=== PATIENT | female | born 1940 | race Two or more races ===

== ENCOUNTER → 2024-04-26 | Outpatient (CLI) | payer MEDICARE, MEDICAID, SELFPAY ==
[2024-04-26 10:20] LABS: Basophils # (Auto) 0.1 Thou/mm3 (0.0-0.2); Basophils % (Auto) 1 % (0-2.5); Eosinophils # (Auto) 0.1 Thou/mm3 (0.0-0.5); Eosinophils % (Auto) 2 % (0-10); Hematocrit 35.6 % (36.0-46.0); Hemoglobin 11.8 g/dL (12.0-16.0); Immature Granulocytes % (Auto) 0 % (0-0); Immature Granulocytes Auto 0.02 Thou/mm3 (0.00-0.00); Lymphocytes # (Auto) 2.2 Thou/mm3 (1.0-4.8); Lymphocytes % (Auto) 29 % (10-50); Mean Corpuscular HGB Conc 33.1 g/dl (31.0-37.0); Mean Corpuscular Hemoglobin 30.8 pg (25.0-35.0); Mean Corpuscular Volume 93 fL (80-100); Monocytes # (Auto) 0.7 Thou/mm3 (0.0-0.8); Monocytes % (Auto) 9 % (0-12); Neutrophils # (Auto) 4.6 Thou/mm3 (1.8-7.7); Neutrophils % (Auto) 59 % (37-80); Nucleated Red Blood Cell % 0 /100 WBC (0); Platelet Count 199 Thou/mm3 (140-440); RDW Standard Deviation 45.1 fL (36.4-46.3); Red Blood Count 3.83 Miln/mm3 (4.00-5.20); White Blood Count 7.7 Thou/mm3 (3.6-11.0)
[2024-04-26 10:36] LABS: Glucose Estimated Average 183 mg/dL (80-131)
[2024-04-26 10:37] LABS: Collection Type, Urine Clean Catch
[2024-04-26 10:53] LABS: Vitamin B12 571 pg/mL (211-911)
[2024-04-26 10:54] LABS: Alanine Aminotransferase 20 U/L (10-49); Albumin, Serum 4.4 gm/dL (3.4-4.8); Albumin/Globulin Ratio 2.1 (1.2-2.2); Alkaline Phosphatase 44 U/L (46-116); Anion Gap 5 (7-16); Aspartate Amino Transferase 24 U/L (0-34); BUN/Creatinine Ratio 15 Ratio (12-20); Bilirubin,Total 0.4 mg/dL (0.3-1.2); Blood Urea Nitrogen 9 mg/dL (9-23); Calcium 9.4 mg/dL (8.3-10.6); Calcium (Corrected) 9.4 mg/dL (8.5-10.1); Carbon Dioxide 35.3 mMol/L (20.0-31.0); Cardiac Risk Estimate 2.6 RATIO (3.7-5.6); Chloride 100 mMol/L (98-107); Cholesterol 143 mg/dL (132-200); Creatinine (Component) 0.6 mg/dL (0.6-1.3); Globulin 2.1 gm/dL (2.3-3.5); Glucose 107 mg/dL (74-106); HDL Cholesterol 55 mg/dL (40-60); LDL Cholesterol,Calculated 62 mg/dL (0-130); Osmolality,Calculated 278 (275-295); Potassium 4.7 mMol/L (3.4-5.1); Sodium 140 mMol/L (136-145); Total Protein 6.5 gm/dL (5.7-8.2); Triglycerides 129 mg/dL (30-150); eGFR > 60 See Note
[2024-04-26 10:55] LABS: Thyroid Stimulating Hormone 2.94 uIU/mL (0.55-4.78)
[2024-04-26 11:31] LABS: Bacteria,Urine Rare; Bilirubin,Urine Negative (Negative); Blood,Urine Negative (Negative); Clarity,Urine Clear (Clear/Hazy); Color,Urine Lt-Yellow (Lt Yel-Yel); Glucose, Urine Negative (Negative); Ketones,Urine Negative (Negative); Leukocyte Esterase,Urine Negative (Negative); Nitrite,Urine Negative (Negative); Protein,Urine Trace (Neg - Trace); RBC,Urine 2 /hpf (0-3); Squamous Epithelial Cell,Urine < 1 /hpf (0-5); Urobilinogen,Urine Negative mg/dL (0.0-1.0); WBC,Urine 10 /hpf (0-5)
[2024-04-26 12:06] LABS: Creatinine MALB Rnd Ur 52 mg/dL (30-125); Microalbumin Creat Ratio 138 mg/gCrea (<30); Microalbumin, Random Urine 72 mg/L (0-300)
== END | disposition home or self-care (01) ==
PROVIDERS: PCP Family Medicine; Referring Provider Family Medicine; Visit Provider Family Medicine
DX: Z00.00 Encounter for general adult medical examination without abnormal findings (principal); D51.9 Vitamin B12 deficiency anemia, unspecified; E11.40 Type 2 diabetes mellitus with diabetic neuropathy, unspecified; E79.0 Hyperuricemia without signs of inflammatory arthritis and tophaceous disease; E78.2 Mixed hyperlipidemia
CPT/HCPCS: 36415; 80053; 80061; 81001; 82043; 82306; 82570; 82607; 83036; 84443; 84550; 85025

== ENCOUNTER 2024-06-03 14:11 | Emergency (ER) | payer MEDICARE, MEDICAID, SELFPAY ==
[2024-06-03 14:57] VITALS: BP 165/98; PULSE 75; RESP 20; TEMP 36.9; O2SAT 95
--- NOTE | 2024-06-03 15:02 | XR_ITS ---
Examination: CT abdomen with intravenous contrast CT pelvis with intravenous contrast 2-D coronal reconstructions 2-D sagittal reconstructions Date and time of exam:June 03, 2024 1856 hrs. Indications: Abdominal pain nausea vomiting beginning 3 days ago, perinephric stranding left kidney stone cystitis pattern on CT 12/10/2022. CTDI: vol (mGy) 15.8 DLP: (mGycm) 866 Technique: Multiple axial sections of the abdomen and pelvis have been obtained. 64 slice high-resolution scanner used. 3 mm axial sections have been obtained, post intravenous injection 60 cc [id number] 2-D sagittal, coronal reconstructions obtained. Low dose protocols were performed. One or more of the following dose reduction techniques were used; automated exposure control, adjustment of the mA and/or KV according to patient size, use of iterative reconstruction technique. Findings: Fatty infiltration throughout the liver Gallstones No pancreatic or adrenal mass Spleen is not enlarged 4 mm lower pole left renal calculus 2 mm lower pole right renal calculus No hydronephrosis or ureteral calculi Aorta normal size No bowel obstruction No pericecal inflammatory change Colonic diverticulosis, no diverticulitis No bladder mass or bladder calculi No pelvic mass Severe osteopenia with moderate to advanced degenerative disc disease lower 3 lumbar levels Impression: Cholelithiasis Bilateral nonobstructing renal calculi No hydronephrosis or ureteral calculi No CT findings of appendicitis bowel obstruction or diverticulitis
--- NOTE | 2024-06-03 15:04 | PD.EDRME ---
Rapid Medical Screening Exam RME Arrival date/time: 06/03/24 14:11 84-year-old female reports with complaints of diffuse abdominal pain, steatorrhea, and weakness for several days Chief Complaint: Abdominal Pain Time Seen by Provider: 06/03/24 14:14 Vital signs: Vital Signs Temperature 98.5 F 06/03/24 14:57 Pulse Rate 75 06/03/24 14:57 Respiratory Rate 20 06/03/24 14:57 Blood Pressure 165/98 H 06/03/24 14:57 Pulse Oximetry (%) 95 06/03/24 14:57 Oxygen Delivery Method Room Air 06/03/24 14:57
[2024-06-03 15:36] LABS: Basophils # (Auto) 0.1 Thou/mm3 (0.0-0.2); Basophils % (Auto) 1 % (0-2.5); Eosinophils # (Auto) 0.1 Thou/mm3 (0.0-0.5); Eosinophils % (Auto) 1 % (0-10); Hemoglobin 11.9 g/dL (12.0-16.0); Immature Granulocytes % (Auto) 0 % (0-0); Immature Granulocytes Auto 0.03 Thou/mm3 (0.00-0.00); Lymphocytes # (Auto) 2.6 Thou/mm3 (1.0-4.8); Lymphocytes % (Auto) 25 % (10-50); Mean Corpuscular HGB Conc 33.1 g/dl (31.0-37.0); Mean Corpuscular Volume 94 fL (80-100); Monocytes # (Auto) 0.8 Thou/mm3 (0.0-0.8); Monocytes % (Auto) 7 % (0-12); Neutrophils # (Auto) 6.8 Thou/mm3 (1.8-7.7); Neutrophils % (Auto) 66 % (37-80); Nucleated Red Blood Cell % 0 /100 WBC (0); Platelet Count 215 Thou/mm3 (140-440); RDW Standard Deviation 47.7 fL (36.4-46.3); Red Blood Count 3.84 Miln/mm3 (4.00-5.20); White Blood Count 10.3 Thou/mm3 (3.6-11.0)
[2024-06-03 15:50] LABS: Beta Hydroxybutyrate 0.1 mmol/L (<0.6)
[2024-06-03 15:54] LABS: Alanine Aminotransferase 21 U/L (10-49); Albumin, Serum 4.2 gm/dL (3.4-4.8); Albumin/Globulin Ratio 1.6 (1.2-2.2); Alkaline Phosphatase 41 U/L (46-116); Anion Gap 8 (7-16); Aspartate Amino Transferase 32 U/L (0-34); BUN/Creatinine Ratio 12 Ratio (12-20); Bilirubin,Total 0.3 mg/dL (0.3-1.2); Blood Urea Nitrogen 7 mg/dL (9-23); Calcium 9.4 mg/dL (8.3-10.6); Calcium (Corrected) 9.4 mg/dL (8.5-10.1); Carbon Dioxide 30.5 mMol/L (20.0-31.0); Chloride 98 mMol/L (98-107); Creatinine (Component) 0.6 mg/dL (0.6-1.3); Globulin 2.7 gm/dL (2.3-3.5); Glucose 178 mg/dL (74-106); Lipase 30 U/L (12-53); Osmolality,Calculated 273 (275-295); Potassium 4.3 mMol/L (3.4-5.1); Sodium 136 mMol/L (136-145); Total Protein 6.9 gm/dL (5.7-8.2); eGFR > 60 See Note
[2024-06-03 19:53] LABS: Collection Type, Urine Clean Catch; Squamous Epithelial Cell,Urine 0 /hpf (0-5)
[2024-06-03 20:09] LABS: Bilirubin,Urine Negative (Negative); Blood,Urine Negative (Negative); Clarity,Urine Clear (Clear/Hazy); Color,Urine Lt-Yellow (Lt Yel-Yel); Culture Indicated,Urine Not Indicated; Glucose, Urine Negative (Negative); Ketones,Urine Negative (Negative); Leukocyte Esterase,Urine Negative (Negative); Nitrite,Urine Negative (Negative); PH,Urine 6.5 (5.0-7.0); Protein,Urine Trace (Neg - Trace); RBC,Urine < 1 /hpf (0-3); Specific Gravity,Urine 1.008 (1.001-1.035); Urobilinogen,Urine Negative mg/dL (0.0-1.0); WBC,Urine < 1 /hpf (0-5)
--- NOTE | 2024-06-03 20:47 | EDNOTE_ITS ---
<Statement entered by Felicita Mora MD - 06/04/24 01:02> As co-signing physician, I was present and available for consult prn. I concur with the plan and care as documented by the midlevel provider. ED Abdominal Pain RME/HPI General Chief Complaint: Abdominal Pain Stated complaint: ABD PAIN, NAUSEA Time seen by provider: 06/03/24 14:14 Arrival date/time: 06/03/24 14:11 84-year-old female with past medical history of diabetes, hypertension, hyperlipidemia presents emergency department complaining of diffuse abdominal pain, diarrhea, and nausea that is been ongoing for several days. Patient denies any fever, chills, vomiting, chest pain, shortness of breath, or any other associated symptom. Source: patient and family Mode of arrival: ambulatory Limitations: no limitations RME / HPI RME / HPI narrative: 06/03/24 14:11 84-year-old female reports with complaints of diffuse abdominal pain, steatorrhea, and weakness for several days Related Data Home Medications ?Medication ?Instructions ?Recorded ?Confirmed albuterol sulfate 90 mcg/actuation 2 puff inhalation Q 4H PRN Wheezing 05/04/19 04/24/20 aerosol inhaler (Ventolin HFA) aspirin 81 mg chewable tablet 81 mg PO QDAY 05/04/19 0 04/24/20 atorvastatin 20 mg tablet 20 mg PO QDAY 05/04/1904/24 benazepril 40 mg tablet 40 mg PO BID 05/04/19 buspirone 5 mg tablet 5 mg PO BID 05/04/19 1 carvedilol 6.25 mg tablet 05/04/19 04/24/20 fluoxetine 40 mg capsule 40 mg PO QDAY 05/04/1904/24 furosemide 20 mg tablet (Lasix) 20 mg PO BID 05/04/19 04/24/20 gabapentin 600 mg tablet 600 mg PO BID 05/04/1904/24 metformin 1,000 mg tablet 1,000 mg PO BID 05/04/19 ondansetron HCl 4 mg tablet 4 mg PO QID PRN Nausea 04/24/20 (Zofran) oxybutynin chloride 15 mg 15 mg PO QDAY 05/04/1904/24 tablet,extended release 24 hr pioglitazone 30 mg tablet 30 mg PO BID 05/04/19 prednisone 20 mg tablet 40 mg PO QDAY 05/04/1904/24 promethazine 25 mg tablet 25 mg PO Q6H PRN Vomiting 04/24/20 Previous Rx's ?Medication ?Instructions ?Recorded albuterol sulfate 90 mcg/actuation 2 puff inhalation Q ID #8.5 grams 06/01/22 aerosol inhaler azithromycin 250 mg tablet See Rx Instructions PO .COM PLEX #6 06/01/22 tabs cephalexin 500 mg capsule 500 mg PO TID #30 caps 12/10 ondansetron 4 mg disintegrating 4 mg PO Q8H PRN nausea and 06/03/24 tablet vomiting #7 tabs Allergies Allergy/AdvReac Type Severity Reaction Status Date / Time No Known Allergies Allergy Verified 10/25/20 01:14 Review of Systems Review of Systems Systems Reviewed: All systems reviewed, normal except as documented Constitutional Constitutional: Reports system reviewed and no additional complaints, except as documented, Denies body ache(s), Denies chills and Denies fever(s) Eyes Eyes: Reports system reviewed and no additional complaints, except as documented and Denies change in vision ENT Ears, Nose, Mouth, and Throat: Reports system reviewed and no additional complaints, except as documented, Denies disequilibrium, Denies dizziness, Denies sore throat and Denies vertigo Cardiovascular Cardiovascular: Reports system reviewed and no additional complaints, except as documented, Denies chest pain and Denies dyspnea Respiratory Respiratory: Reports system reviewed and no additional complaints, except as documented, Denies chest congestion, Denies cough and Denies dyspnea Gastrointestinal Gastrointestinal: Reports system reviewed and no additional complaints, except as documented, Reports abdominal pain, Reports diarrhea, Reports nausea and Denies vomiting Musculoskeletal Musculoskeletal: Reports system reviewed and no additional complaints, except as documented, Denies abnormal gait and Denies arthralgias Integumentary/Breasts Skin/Breast: Reports system reviewed and no additional complaints, except as documented, Denies erythema, Denies rash and Denies wounds Neurologic Neurologic: Reports system reviewed and no additional complaints, except as documented, Denies abnormal gait, Denies disequilibrium, Denies dizziness and Denies vertigo Past Medical History Past Medical History NEUROLOGIC: Negative Neurological Disorders CARDIAC: Positive Angina, Hypercholesterolemia and Hypertension; Negative Cardiac Disorders or Congestive Heart Failure RESPIRATORY: Positive Asthma; Negative Chronic Obstructive Pulmonary Disease (COPD) GASTROINTESTINAL: Positive Gastrointestinal Disorders GENITOURINARY: Positive Genitourinary Disorders; Negative Renal Disease REPRODUCTIVE: Positive Previous Pregnancies MUSCULOSKELETAL: Positive Musculoskeletal Disorders and Arthritis ENDOCRINE: Positive Endocrine Disorders and Diabetes Mellitus Type 2; Negative Diabetes Mellitus Type 1 HEMATOLOGIC: Positive Blood Disorders and Anemia; Negative Sickle Cell Disease PSYCHO/SOCIAL: Positive Depression and Anxiety OTHER HISTORY: Positive Blood Transfusions; Negative Autoimmune Disease or Blood Transfusion Reaction Family History FAMILY HISTORY: Positive Family Cancer; Negative Family Psychiatric Problems, Family Respiratory Disorders, Family Cardiac Disorders, Family Gastrointestinal Problems, Family Surgery or Family Anesthesia Reaction Surgical History SURGICAL: Positive Oral Surgery and Hysterectomy; Negative Cardiac Surgery Social History SMOKING STATUS: Never smoker SUBSTANCE USE: does not use ED Exam General Limitations: Present no limitations General appearance: Present alert and in no apparent distress Head Head exam: Present atraumatic Eye Eye exam: Present normal appearance, PERRL and EOMI ENT ENT exam: Present normal exam, normal oropharynx and mucous membranes moist Neck Neck exam: Present normal inspection, full ROM and trachea midline Chest Chest inspection: Present normal inspection and symmetric chest wall rise Respiratory Respiratory exam: Present normal lung sounds bilaterally Cardiovascular Cardiovascular exam: Present regular rate, normal rhythm and normal heart sounds Abdominal Exam Abdominal exam: Present soft and normal bowel sounds; Absent tenderness, Starr's sign or tenderness at McBurney's Point Extremities Exam Extremities exam: Present normal inspection and full ROM Back Exam Back exam: Present normal inspection and full ROM Neurological Exam Neurological exam: Present alert, oriented X3 and CN II-XII intact Psychiatric Psychiatric exam: Present normal affect and normal mood Skin Skin exam: Present warm, dry, intact and normal color Course Quality Measures none Orders Category Date Time Status Bedside Influenza A&B Antigen Test NOW Care 06/03/24 20:[address] Screening NOW Care 06/03/24 15:[address] abdomen pelvis w con Stat Exams 06/03/24 15:02 Completed Beta Hydroxybutyrate Stat Lab 06/03/24 15:06 Completed CBC Stat Lab 06/03/24 15:06 Completed CMP [Comprehensive Metabolic Panel] Stat Lab 06/03/24 15:06 Completed Lipase Stat Lab 06/03/24 15:06 Completed UA, C/S IF [Urinalysis, C/S if Indicated] Stat Lab 06/03/24 15:40 Completed Famotidine [Pepcid] Med 06/03/24 20:46 Discontinued 40 mg PO X1 ONE Lidocaine 2% Viscous [Xylocaine 2% Viscous] Med 06/03/24 20:46 Discontinued 15 ml PO X1 ONE Ondansetron Odt [Zofran Odt] Med 06/03/24 20:46 Discontinued 4 mg PO X1 ONE mg Hyd/Al Hyd/Timmy Susp [Maalox Susp] Med 06/03/24 20:46 Discontinued 30 ml PO X1 ONE Vital Signs Vital signs: Vital Signs Temperature 98.5 F 06/03/24 14:57 Pulse Rate 75 06/03/24 14:57 Respiratory Rate 20 06/03/24 14:57 Blood Pressure 165/98 H 06/03/24 14:57 Pulse Oximetry (%) 95 06/03/24 14:57 Oxygen Delivery Method Room Air 06/03/24 14:57 95% room air within normal limits Abdominal Pain MDM MDM Narrative MDM Narrative:: 84-year-old female with past medical history of diabetes, hypertension, hyperlipidemia presents emergency department complaining of diffuse abdominal pain, diarrhea, and nausea that is been ongoing for several days. Patient denies any fever, chills, vomiting, chest pain, shortness of breath, or any other associated symptom. CBC unremarkable for any leukocytosis or anemia. CMP was unremarkable for any gross electrolyte abnormalities or elevated LFTs with normal lipase. Urinalysis unremarkable. CT abdomen pelvis w con findings: Fatty infiltration throughout the liver Gallstones No pancreatic or adrenal mass Spleen is not enlarged 4 mm lower pole left renal calculus 2 mm lower pole right renal calculus No hydronephrosis or ureteral calculi Aorta normal size No bowel obstruction No pericecal inflammatory change Colonic diverticulosis, no diverticulitis No bladder mass or bladder calculi No pelvic mass Severe osteopenia with moderate to advanced degenerative disc disease lower 3 lumbar levels Patient's abdomen is soft and nontender. Patient reported improvement in symptoms after was given medication. No episodes of vomiting patient successful p.o. challenge. Patient discharged and instructed to follow-up with primary care provider return to emergency department for any worsening symptoms or as needed. Patient data External records reviewed:: [facility] previous records Clinical information provided by:: patient and family Social determinants that could affect healthcare access:: none Patient has the following chronic illnesses:: See chart How is presenting disease/condition affected by chronic disease/condition?: uneffected by Evaluation data The following diagnostics were reviewed and interpreted by me:: lab results and radiology exam(s) Lab and/or radiology exams considered but not ordered:: Ordered Interpretation Summary: Interpreted by me Medications / Prescriptions Medications or Prescriptions considered but not ordered:: Ordered Medication administrations:: Medication Administration History Discontinued Medications Al Hydrox/Mg Hydrox/Simethicone (Mg Hyd/Al Hyd/Timmy (Maalox Reg) Susp 30 Ml Udc) 30 ml PO X1 ONE Stop: 06/03/24 20:47 Last Admin: 06/03/24 21:12 Dose: 30 ml Documented By: NICKI Famotidine (Famotidine 20 Mg Tablet) 40 mg PO X1 ONE Stop: 06/03/24 20:47 Last Admin: 06/03/24 21:12 Dose: 40 mg Documented By: NICKI Lidocaine HCl (Lidocaine Viscous 2% 15 Ml Udc) 15 ml PO X1 ONE Stop: 06/03/24 20:47 Last Admin: 06/03/24 21:12 Dose: 15 ml Documented By: NICKI Ondansetron HCl (Ondansetron Odt 4 Mg Tabrap) 4 mg PO X1 ONE; Protocol Stop: 06/03/24 20:47 Last Admin: 06/03/24 21:12 Dose: 4 mg Documented By: NICKI Given Consultations Consultation(s) initiated? (list below): No Diagnosis Differential diagnosis abdominal pain: abdominal pain, acute appendicitis, calculus of kidney, constipation, diverticulitis, endometriosis, gastroenteritis, pancreatitis and small bowel obstruction Most likely diagnosis given after review of the tests above:: Viral gastroenteritis Admission Indicated Admission indicated?: not indicated Admission Request Was there a request for admission?: No Disposition Plan Disposition Plan: Discharge Discharge Attestation Discharge Attestation: The patient and all family members were given an opportunity to ask questions and understood the discharge instructions. Discharge instructions specifically effects, indications for sooner follow up or return to the emergency department, and the expected course of current diagnosis. Patient condition: Stable Discharge Plan Plan Patient Disposition: HOME (Self Care) Disposition Comment: Stable Prescriptions/Referrals Prescriptions/Med Rec: New ondansetron 4 mg tablet,disintegrating 4 mg PO Q8H PRN (Reason: nausea and vomiting) Qty: 7 0RF No Action prednisone 20 mg Tablet 40 mg PO QDAY albuterol sulfate [Ventolin HFA] 90 mcg/actuation Hfa Aerosol Inhaler 2 puff inhalation Q4H PRN (Reason: Wheezing) fluoxetine 40 mg Capsule 40 mg PO QDAY buspirone 5 mg Tablet 5 mg PO BID carvedilol 6.25 mg Tablet oxybutynin chloride 15 mg Tablet Extended Release 24hr 15 mg PO QDAY gabapentin 600 mg Tablet 600 mg PO BID atorvastatin 20 mg Tablet 20 mg PO QDAY ondansetron HCl [Zofran] 4 mg Tablet 4 mg PO QID PRN (Reason: Nausea) metformin 1,000 mg Tablet 1,000 mg PO BID promethazine 25 mg Tablet 25 mg PO Q6H PRN (Reason: Vomiting) aspirin 81 mg Tablet,Chewable 81 mg PO QDAY furosemide [Lasix] 20 mg Tablet 20 mg PO BID benazepril 40 mg Tablet 40 mg PO BID pioglitazone 30 mg Tablet 30 mg PO BID azithromycin 250 mg tablet See Rx Instructions .ROUTE .COMPLEX Qty: 6 0RF Rx Instructions: For 250 mg dose pack: take 500 mg today (day 1), then 250 mg for 4 days (days 2-5) albuterol sulfate 90 mcg/actuation HFA aerosol inhaler 2 puff inhalation QID Qty: 8.5 0RF cephalexin 500 mg capsule 500 mg PO TID Qty: 30 0RF Referrals: Jorge Todd MD [Primary Care Provider] - In 1 week Problem List Clinical Impression: Viral gastroenteritis Patient/Caregiver Discharge Instructions Discharge Activity: activity as tolerated Education Materials: ED Diet Diarrhea Only ..., ED Gastroenteritis, Viral (Adult) Additional Instructions: Drink plenty of fluids and get plenty of rest. Take Tylenol as needed for pain. Close follow-up with primary care provider in 2 to 3 days. Return to emergency department for any worsening symptoms or as needed. Print Language: Bur[place]ian Stand Alone Forms: Natalia Award Info., Patient Portal Info Letter PA/VOLODYMYR Supervising Physician PA/VOLODYMYR Supervising Physician: Dr. Mora
[2024-06-03] MEDS: FAMOTIDINE 20 MG TABLET 40 MG PO (21:12)
[2024-06-03] MEDS: LIDOCAINE VISCOUS 2% 15 ML UDC PO (21:12)
[2024-06-03] MEDS: ONDANSETRON ODT 4 MG TABRAP PO (21:12)
[2024-06-03] MEDS: MG HYD/AL HYD/SIME (Maalox Reg) SUSP 30 ML UDC PO (21:12)
[2024-06-03 21:16] VITALS: BP 138/76; PULSE 78; RESP 18; TEMP 36.7; O2SAT 98
== END 2024-06-03 21:18 | disposition home or self-care (01) ==
PROVIDERS: Physician Assistant; Emergency Provider Emergency Medicine; PCP Family Medicine
DX: A08.4 Viral intestinal infection, unspecified (principal); E11.9 Type 2 diabetes mellitus without complications; I10 Essential (primary) hypertension; E78.5 Hyperlipidemia, unspecified
CPT/HCPCS: 36415; 74177; 80053; 81001; 82010; 83690; 85025; 87400; 99285; A4649; J3490; Q0162; Q9967; A9270

== ENCOUNTER → 2024-09-06 | Outpatient (CLI) | payer MEDICARE, MEDICAID, SELFPAY ==
[2024-09-06 14:21] LABS: Collection Type, Urine Clean Catch; Squamous Epithelial Cell,Urine 0 /hpf (0-5)
[2024-09-06 16:44] LABS: Bacteria,Urine Rare; Bilirubin,Urine Negative (Negative); Blood,Urine 2+ (Negative); Color,Urine Yellow (Lt Yel-Yel); Glucose, Urine Negative (Negative); Ketones,Urine Negative (Negative); Leukocyte Esterase,Urine Positive (Negative); Nitrite,Urine Negative (Negative); Protein,Urine 1+ (Neg - Trace); RBC,Urine 39 /hpf (0-3); Specific Gravity,Urine 1.014 (1.001-1.035); Urobilinogen,Urine Negative mg/dL (0.0-1.0); WBC,Urine 1203 /hpf (0-5)
[2024-09-06 16:47] LABS: Clarity,Urine Cloudy (Clear/Hazy)
== END | disposition home or self-care (01) ==
LOC: SLDO 14:06
PROVIDERS: Referring Provider Family Medicine; Visit Provider Family Medicine
DX: N30.00 Acute cystitis without hematuria (principal)
CPT/HCPCS: 81001; 87077; 87086; 87186

== ENCOUNTER → 2024-11-27 | Outpatient (CLI) | payer MEDICARE, MEDICAID, SELFPAY ==
[2024-11-27 10:23] LABS: Glucose Estimated Average 154 mg/dL (80-131); Hemoglobin A1C 7.0 % Hgb (4.8-6.0)
[2024-11-27 10:36] LABS: Alanine Aminotransferase 17 U/L (10-49); Albumin, Serum 4.1 gm/dL (3.4-4.8); Albumin/Globulin Ratio 2.1 (1.2-2.2); Alkaline Phosphatase 39 U/L (46-116); Anion Gap 8 (7-16); Aspartate Amino Transferase 29 U/L (0-34); BUN/Creatinine Ratio 10 Ratio (12-20); Bilirubin,Total 0.4 mg/dL (0.3-1.2); Blood Urea Nitrogen 6 mg/dL (9-23); Calcium 9.6 mg/dL (8.3-10.6); Calcium (Corrected) 9.6 mg/dL (8.5-10.1); Carbon Dioxide 30.8 mMol/L (20.0-31.0); Cardiac Risk Estimate 2.2 RATIO (3.7-5.6); Chloride 100 mMol/L (98-107); Cholesterol 112 mg/dL (132-200); Creatinine (Component) 0.6 mg/dL (0.6-1.3); Globulin 2.0 gm/dL (2.3-3.5); Glucose 95 mg/dL (74-106); HDL Cholesterol 51 mg/dL (40-60); LDL Cholesterol,Calculated 39 mg/dL (0-130); Osmolality,Calculated 275 (275-295); Potassium 4.8 mMol/L (3.4-5.1); Sodium 139 mMol/L (136-145); Total Protein 6.1 gm/dL (5.7-8.2); Triglycerides 110 mg/dL (30-150); eGFR > 60 See Note
[2024-11-27 10:46] LABS: Uric Acid 5.9 mg/dL (3.1-7.8)
== END | disposition home or self-care (01) ==
PROVIDERS: PCP Family Medicine; Referring Provider Family Medicine; Visit Provider Family Medicine
DX: E11.69 Type 2 diabetes mellitus with other specified complication (principal); E78.2 Mixed hyperlipidemia; I10 Essential (primary) hypertension; E79.0 Hyperuricemia without signs of inflammatory arthritis and tophaceous disease
CPT/HCPCS: 36415; 80053; 80061; 83036; 84550

== ENCOUNTER → 2025-02-21 | Outpatient (CLI) | payer MEDICARE, MEDICAID, SELFPAY ==
[2025-02-21 14:09] LABS: Collection Type, Urine Clean Catch
[2025-02-21 17:08] LABS: Bacteria,Urine Rare; Bilirubin,Urine Negative (Negative); Blood,Urine Negative (Negative); Clarity,Urine Clear (Clear/Hazy); Color,Urine Yellow (Lt Yel-Yel); Glucose, Urine Negative (Negative); Ketones,Urine Negative (Negative); Leukocyte Esterase,Urine Positive (Negative); Nitrite,Urine Negative (Negative); PH,Urine 7.0 (5.0-7.0); Protein,Urine 1+ (Neg - Trace); RBC,Urine 7 /hpf (0-3); Specific Gravity,Urine 1.020 (1.001-1.035); Squamous Epithelial Cell,Urine < 1 /hpf (0-5); Urobilinogen,Urine Negative mg/dL (0.0-1.0); WBC,Urine 74 /hpf (0-5)
== END | disposition home or self-care (01) ==
LOC: SLDO 14:03
PROVIDERS: Referring Provider Family Medicine; Visit Provider Family Medicine
DX: N30.00 Acute cystitis without hematuria (principal)
CPT/HCPCS: 81001; 87086